=== PATIENT | female | born 1960 | race African-American/Black ===

== ENCOUNTER 2019-10-26 10:23 | Outpatient (CLI) | payer OTHER, SELFPAY ==
--- NOTE | 2019-10-26 10:25 | ECG_ITS ---
Measurements Intervals [place] Rate: 73 P: 39 CA: 160 QRS: -9 QRSD: 104 T: 32 QT: 366 QTc: 404 Interpretive Statements SINUS RHYTHM BORDERLINE R WAVE PROGRESSION, ANTERIOR LEADS BORDERLINE ECG Electronically Signed On 10-26-2019 12:37:36 CDT by Mehul Carver D.O.
[2019-10-26 11:46] LABS: Blood Urea Nitrogen 12 mg/dL (7-17); Calcium 10.6 mg/dL (8.4-10.2); Carbon Dioxide 28 mmol/L (22-30); Chloride 103 mmol/L (98-107); Estimated Glomerular Filt Rate > 60; Glucose 107 mg/dL (65-105); Potassium 4.3 mmol/L (3.4-5.0); Sodium 138 mmol/L (137-145)
== END 2019-10-26 10:24 | disposition home or self-care (01) ==
LOC: ANHSURGERY 10:25
PROVIDERS: Anesthesiology; PCP Nurse Practitioner Family; Visit Provider Surgery Plastic and Reconstructive Surgery
DX: Z01.818 Encounter for other preprocedural examination (principal); E11.9 Type 2 diabetes mellitus without complications
CPT/HCPCS: 36415; 80048; 93005

== ENCOUNTER 2019-10-29 00:50 | Outpatient (CLI) | payer OTHER, SELFPAY ==
[2019-10-29 16:39] LABS: SARS-CoV-2 RNA PCR Negative
== END 2019-10-29 00:51 | disposition home or self-care (01) ==
LOC: ANHCOVIDDT 00:50
PROVIDERS: PCP Nurse Practitioner Family; Visit Provider Surgery Plastic and Reconstructive Surgery
DX: Z01.812 Encounter for preprocedural laboratory examination (principal); Z20.828 Contact with and (suspected) exposure to other viral communicable diseases
CPT/HCPCS: 87635; C9803; U0003

== ENCOUNTER 2019-10-31 08:22 | Outpatient (CLI) | payer OTHER, SELFPAY ==
[2019-10-31 08:43] LABS: Hematocrit 41.2 % (37.0-47.0); Hemoglobin 13.4 g/dL (12.0-15.0); Mean Corpuscular HGB Conc 32.5 g/dl (32-36); Mean Corpuscular Hemoglobin 29.8 pg (26-34); Mean Corpuscular Volume 91.8 fl (80-100); Mean Platelet Volume 12.2 fl (7.4-10.4); Platelet Count Result 186 k/mm3 (150-375); Red Blood Count 4.49 M/mm3 (4.2-5.4); Red Cell Distribution Width 13.3 % (11.5-14.5); White Blood Count 6.9 K/mm3 (4.5-10.0)
[2019-10-31 08:53] LABS: Hemoglobin A1C 5.6 % (<5.7)
== END 2019-10-31 08:23 | disposition home or self-care (01) ==
PROVIDERS: PCP Nurse Practitioner Family; Visit Provider Surgery Plastic and Reconstructive Surgery
DX: E11.9 Type 2 diabetes mellitus without complications (principal)
CPT/HCPCS: 36415; 83036; 85027

== ENCOUNTER 2019-11-01 00:39 | Day surgery (SDC) | payer OTHER, SELFPAY ==
[2019-10-24 14:31] VITALS: BMI 40.7
--- NOTE | 2019-10-31 13:17 | WPDANESEPPF ---
Anes - Initial Pre Proc Eval Procedure: Operation Date: 11/01/19 12:30 Proposed Procedures p Bilateral Extended Brachioplasty - David Funez MD Date/Time: 10/31/19 13:17 Surgeon: David Funez MD Pre Op Diagnosis: Skin Laxity Patient Data Age: 59 Gender: F Height: 5 ft 7 in Weight: 117.93 kg Allergies Allergy/AdvReac Type Severity Reaction Status Date / Time amoxicillin [From Augmentin] AdvReac Vomiting Verified 10/24/19 14:31 clavulanic acid AdvReac Vomiting Verified 10/24/19 14:31 [From Augmentin] Home Medications Medication Instructions Recorded Confirmed Type amlodipine 10 mg tablet 5 mg PO DAILY 09/13/19 10/24/19 History metformin 850 mg tablet 850 mg PO DAILY 09/13/19 10/24/19 History albuterol sulfate 2 puff INHALATION Q4H PRN 10/24/19 10/24/19 History cholecalciferol (vitamin D3) 50 mcg PO DAILY 10/24/19 10/24/19 History [Vitamin D3] xhblecrb-eadaq-mftxa-CF borate 1 tablet PO DAILY 10/24/19 10/24/19 History [[facility]] levothyroxine 100 mcg PO DAILY 10/24/19 10/24/19 History pravastatin 10 mg PO QPM 10/24/19 10/24/19 History docusate sodium 100 mg capsule 100 mg PO DAILY #14 cap 10/27/19 Rx ondansetron HCl 4 mg tablet 4 mg PO Q8H #28 tablet 10/27/19 Rx oxycodone-acetaminophen 5 mg-325 1 tablet PO Q6H PRN #15 tablet 10/27/19 10/27/19 Rx mg tablet Patient hx anesthesia problems: post op nausea/vomiting Family hx anesthesia problems: none PMFSH Social History Social History (Updated 09/13/19 @ 08:12 by Malia Alvarez CMA) Smoking status: Never smoker Alcohol intake: never Substance use: never Anes - Eval Final PreProcedure Day of Procedure 10/31/19 13:17 Patient weight: morbidly obese Heart: regular rate and rhythm Lungs: clear to auscultation Airway: Mallampati scale class II Neurological: alert and oriented Last oral intake: >/= 8 hours ASA classification: III Emergent: no Anesthetic plan: proceed Anesthesia type and monitoring: general LMA and standard monitoring Informed Consent: The patient's anesthetic plan and its attendant risks and benefits were discussed with the patient/family/POA. Questions were solicited and answers provided to the satisfaction of the patient/family/POA.
[2019-11-01] VITALS (20 sets, daily range): BP systolic 142–191; BP diastolic 58–82; PULSE 77–118; RESP 17–25; TEMP 36.1–36.7; O2SAT 92–100; BMI 42.5
[2019-11-01 11:20] LABS: Urine Cotinine NEGATIVE
--- NOTE | 2019-11-01 11:48 | WPDHPUPDATE1 ---
History and Physical Update Update Date/Time: 11/01/19 11:48 History and Physical has been reviewed, including an updated exam of the patient. There are NO changes in the patient's condition. Risks, benefits, and alternatives have been discussed and questions answered. Patient agrees to proceed with procedure.
[2019-11-01 12:03] LABS: Glucose Point of Care 92 (65-105)
[2019-11-01] MEDS: SCOPOLAMINE 1.5 MG PATCH TRANSDERM (12:15)
[2019-11-01] MEDS: ONDANSETRON INJ 4 MG/2 ML VIAL IV PUSH ×3 (12:15→17:10)
[2019-11-01] MEDS: LACTATED RINGERS 1,000 ML 30 ML IV CONT ×3 (12:28→18:01)
[2019-11-01] MEDS: CLINDAMYCIN 900 MG/NS 50 ML 900 MG/50 ML PIGGYBACK 50 MG IVPB (12:28)
--- NOTE | 2019-11-01 15:48 | SUR.OPER ---
1546 poc blood sugar 102
[2019-11-01 15:54] LABS: Glucose Point of Care 53 (65-105)
[2019-11-01 15:54] LABS: Glucose Point of Care 102 (65-105)
--- NOTE | 2019-11-01 16:37 | PM.PROC ---
Procedure Note - Detailed Date of procedure: 11/01/19 Pre-op diagnosis: Skin Laxity Post-op diagnosis: same Procedure performed: Extended brachioplasty Description of procedure: Patient was marked in the preoperative holding area with her verification. I did verify the locations of the scars that extended on the arm as well as the lateral chest wall. I want her to be an active participant aware of where the scar locations would be. Made sure answered all of her questions to her satisfaction today and consent was obtained. She was taken to the operating room placed supine on the operating room table. Anesthesia was provided by anesthesiology and prepped and draped in a standard sterile fashion. Surgical time-out was taken. Stab incisions were made along the planned upper incision line of the arms. I then used a tumescent solution 1 L per arm/lateral chest wall. Both arms proceed in the same manner. A 4 mm basket cannula is used to complete S.A.F.E. liposuction of bilateral upper arms as well as lateral chest [place]. In the area of planned resection I completely deep fat of this with the liposuction cannula. Starting from the axilla moving distally I did a strip avulsion technique. This was a cut as you go stapling as you go technique. Also on the chest wall did very similar stapling as we went to make sure good contour. I closed using 2-0 Vicryl followed by 3-0 strata fix and 3-0 chromic. Suture was used to completely obliterate all space. Xeroform fluffs and a lightly applied Siva wrap were used for dressing. She had good color and capillary refill of her fingers at the end of the case. She was woken taken the PACU without difficulty. All instrument sponge counts were correct at the end of the case. Anesthesia: GLMA Surgeon: David Funez MD Estimated blood loss (mL): 30 Drains: No Packing: No Pathology: none sent Complications: No immediate complications Condition: stable Disposition: PACU Findings: Tissue weight: Right - 710 grams Left - 686 grams
[2019-11-01 16:55] LABS: Glucose Point of Care 84 (65-105)
[2019-11-01] MEDS: HALOPERIDOL LACTATE 5 MG/ML VIAL 1 MG IV PUSH (17:39)
[2019-11-01] MEDS: DEXAMETHASONE SOD PHOS INJ 4 MG/ML VIAL IV PUSH (18:04)
--- NOTE | 2019-11-01 18:31 | SUR.PHASEI ---
RN has contacted Dr. Barker multiple times related to nausea and vomiting. Patient keeps actively vomiting up stomach bile. Patient has gotten sick a total of 5 times now in recovery.
[2019-11-01 18:39] LABS: Glucose Point of Care 137 (65-105)
[2019-11-01] MEDS: METOCLOPRAMIDE HCL INJ 10 MG/2 ML VIAL IV PUSH (18:46)
--- NOTE | 2019-11-01 19:00 | SUR.PHASEI ---
RN notified Dr. Funez of patient's uncontrolled nausea and vomiting.
--- NOTE | 2019-11-01 19:41 | WPDPN ---
Progress Note: A&P Assessment and Plan (1) Skin laxity: Code(s): L57.4 - Cutis laxa senilis Status: Acute Assessment and Plan: Due to persistent nausea will keep overnight. She has had this with anesthesia before. She is improving some however may be difficult for the family to keep at home. Discussed this with her and her and they agree. We will monitor overnight. (2) Diabetes: Code(s): E11.9 - Type 2 diabetes mellitus without complications Status: Acute (3) Hypertension: Code(s): I10 - Essential (primary) hypertension Status: Acute (4) Thyroid disease: Code(s): E07.9 - Disorder of thyroid, unspecified Status: Acute Exam Narrative: Exam Narrative: No signs of hematoma. Dressings are clean. Intermittent nausea and nonproductive vomiting now. Const: General: no acute distress Resp: Effort & Inspection: normal respiratory effort Auscultation: no wheezes Cardio: Rate: regular rate GI: GI Palp: Yes Soft to palpation Skin: General skin exam: normal color Psych: Mental Status: mental status grossly normal Objective Data Vital Signs Vital Signs: Vital Signs - 24 hr 11/01/19 10:50 11/01/19 16:42 11/01/19 16:55 Temperature 36.6 C 36.1 C L Pulse Rate 79 78 77 Respiratory Rate 20 18 17 Blood Pressure 156/58 H 154/73 H 156/74 H Pulse Oximetry 100 100 100 11/01/19 17:10 11/01/19 17:25 11/01/19 17:40 Temperature Pulse Rate 89 92 96 Respiratory Rate 23 H 22 H 25 H Blood Pressure 191/73 H 188/77 H 177/72 H Pulse Oximetry 95 92 93 11/01/19 17:55 11/01/19 18:10 11/01/19 18:20 Temperature Pulse Rate 93 95 118 H Respiratory Rate 20 21 H 20 Blood Pressure 170/66 H 168/70 H 164/69 H Pulse Oximetry 92 94 11/01/19 18:35 11/01/19 18:50 11/01/19 19:05 Temperature Pulse Rate 94 99 97 Respiratory Rate 20 22 H 24 H Blood Pressure 169/65 H 161/62 H 142/62 H Pulse Oximetry 92 95 95 11/01/19 19:20 Temperature Pulse Rate 99 Respiratory Rate 23 H Blood Pressure 173/70 H Pulse Oximetry 94 Intake/Output Intake/Output: Intake & Output 10/29/19 10/30/19 10/31/19 11/01/19 23:59 23:59 23:59 23:59 Intake Total 750 Balance 750 Meds/Results Medications: Active Medications Generic Name Dose Route Start Last Admin Trade Name Freq PRN Reason Stop Dose Admin Docusate Sodium 100 mg 11/01/19 21:00 Colace Capsule PO Q12HR SUSY Enoxaparin Sodium 40 mg 11/02/19 09:00 Lovenox SUB-Q DAILY SUSY Fentanyl Citrate 25 mcg 11/01/19 12:00 Sublimaze IV PUSH Q2M PRN Pain Lactated Ringer's 1,000 mls @ 30 mls/hr 11/01/19 12:00 11/01/19 16:42 Lr - Lactated Ringers Iv IV CONT Infused .Q24H SUSY Infusion Lactated Ringer's 1,000 mls @ 30 mls/hr 11/01/19 12:00 11/01/19 18:01 Lr - Lactated Ringers Iv IV CONT 30 mls/hr .Q24H SUSY Administration Lactated Ringer's 1,000 mls @ 125 mls/hr 11/01/19 19:35 Lr - Lactated Ringers Iv IV CONT .Q8H SUSY Morphine Sulfate 2 mg 11/01/19 19:35 Morphine Sulfate Inj IV PUSH Q2H PRN Pain Ondansetron HCl 4 mg 11/01/19 12:00 11/01/19 17:10 Zofran Inj IV PUSH 4 mg ONCE PRN Administration Nausea Ondansetron HCl 4 mg 11/01/19 19:35 Zofran Inj IV PUSH Q6H PRN Nausea Oxycodone HCl 5 mg 11/01/19 12:00 Roxicodone Ir Tablet PO ONCE PRN Pain Oxycodone/Acetaminophen 1 - 2 tablet 11/01/19 19:35 Percocet 5-325 Mg PO Q6H PRN Pain Labs Labs: Laboratory Results - last 24 hr 11/01/19 11/01/19 11/01/19 10:50 12:02 15:42 POC Capillary Glucose 92 53 L* Cotinine Negative 11/01/19 11/01/19 11/01/19 15:45 16:51 18:37 POC Capillary Glucose 102 84 137 H Cotinine
--- NOTE | 2019-11-01 20:45 | ADMGEN ---
This patient, Liane Fletcher, was admitted to 3 [facility] Surg Room 319-01. Patient/family oriented to hospital policies and general routines including ID bracelet, bed and alarms, visiting hours, pain management, procedures, bathroom and other care routines, personal items, smoking policy, room service/diet, and visiting hours. Valuables list has been completed. Information on how to activate the Rapid Response Team has been discussed. Patient/Family are encouraged to report perceived risks to care and to ask questions if they do not understand what they are told or what they should do.
[2019-11-01] MEDS: LACTATED RINGERS 1,000 ML 125 ML IV CONT (21:02)
[2019-11-01] MEDS: MORPHINE SULFATE 2 MG/ML INJ IV PUSH (22:23)
[2019-11-02 00:06] LABS: Glucose Point of Care 162 (65-105)
[2019-11-02] MEDS: ONDANSETRON INJ 4 MG/2 ML VIAL IV PUSH ×3 (01:57→15:32)
[2019-11-02 02:00] VITALS: BP 152/73; PULSE 92; RESP 18; TEMP 36.4; O2SAT 99
[2019-11-02] MEDS: MORPHINE SULFATE 2 MG/ML INJ IV PUSH (02:30)
[2019-11-02] MEDS: LACTATED RINGERS 1,000 ML 125 ML IV CONT (05:24)
[2019-11-02 05:26] LABS: Glucose Point of Care 126 (65-105)
[2019-11-02] MEDS: LEVOTHYROXINE SODIUM 100 MCG TABLET PO (05:39)
[2019-11-02 06:00] VITALS: BP 154/81; PULSE 88; RESP 18; TEMP 37.3; O2SAT 100
--- NOTE | 2019-11-02 06:47 | WPDPN ---
Progress Note: A&P Assessment and Plan (1) Skin laxity: Code(s): L57.4 - Cutis laxa senilis Status: Acute Assessment and Plan: Much improved. We will plan to discharge home today: When tolerating p.o. Ambulating Pain control Today we had a lengthy discussion about the care. What monitor for. Made sure answered all of her questions to her satisfaction. She understands were always available questions after discharge. I will see her back in a week. (2) Diabetes: Code(s): E11.9 - Type 2 diabetes mellitus without complications Status: Acute (3) Hypertension: Code(s): I10 - Essential (primary) hypertension Status: Acute (4) Thyroid disease: Code(s): E07.9 - Disorder of thyroid, unspecified Status: Acute Review of Systems Review of Systems: All systems reviewed & are unremarkable except as noted in HPI and below Exam Narrative: Exam Narrative: Arms are healing well. There is no signs of infection. No hematoma. No seroma. She has normal sensation in the hand, full range of motion, good color and capillary refill. Const: General: no acute distress Resp: Effort & Inspection: normal respiratory effort Auscultation: no wheezes Cardio: Rate: regular rate GI: GI Palp: Yes Soft to palpation Skin: General skin exam: normal color Extrem: Other: No calf tenderness. Negative Homans. Psych: Mental Status: mental status grossly normal Objective Data Vital Signs Vital Signs: Vital Signs - 24 hr 11/01/19 10:50 11/01/19 16:42 11/01/19 16:55 Temperature 36.6 C 36.1 C L Pulse Rate 79 78 77 Respiratory Rate 20 18 17 Blood Pressure 156/58 H 154/73 H 156/74 H Pulse Oximetry 100 100 100 11/01/19 17:10 11/01/19 17:25 11/01/19 17:40 Temperature Pulse Rate 89 92 96 Respiratory Rate 23 H 22 H 25 H Blood Pressure 191/73 H 188/77 H 177/72 H Pulse Oximetry 95 92 93 11/01/19 17:55 11/01/19 18:10 11/01/19 18:20 Temperature Pulse Rate 93 95 118 H Respiratory Rate 20 21 H 20 Blood Pressure 170/66 H 168/70 H 164/69 H Pulse Oximetry 92 94 11/01/19 18:35 11/01/19 18:50 11/01/19 19:05 Temperature Pulse Rate 94 99 97 Respiratory Rate 20 22 H 24 H Blood Pressure 169/65 H 161/62 H 142/62 H Pulse Oximetry 92 95 95 11/01/19 19:20 11/01/19 19:35 11/01/19 19:50 Temperature Pulse Rate 99 98 97 Respiratory Rate 23 H 24 H 17 Blood Pressure 173/70 H 172/71 H 172/66 H Pulse Oximetry 94 94 96 11/01/19 20:00 11/01/19 20:05 11/01/19 20:20 Temperature 36.2 C L Pulse Rate 92 98 96 Respiratory Rate 20 19 20 Blood Pressure 147/66 H 170/82 H Pulse Oximetry 96 96 95 11/01/19 20:45 11/01/19 22:00 11/02/19 02:00 Temperature 36.7 C 36.2 C L 36.4 C Pulse Rate 97 92 92 Respiratory Rate 20 20 18 Blood Pressure 152/62 H 147/66 H 152/73 H Pulse Oximetry 100 96 99 Intake/Output Intake/Output: Intake & Output 10/30/19 10/31/19 11/01/19 11/02/19 23:59 23:59 23:59 23:59 Intake Total 1750 1000 Output Total 300 300 Balance 1450 700 Meds/Results Medications: Active Medications Generic Name Dose Route Start Last Admin Trade Name Freq PRN Reason Stop Dose Admin Albuterol 2 puff 11/01/19 20:22 Proventil Hfa INHALATION Q4H PRN Shortness Of Breath Amlodipine Besylate 5 mg 11/02/19 09:00 Norvasc PO DAILY SUSY Docusate Sodium 100 mg 11/01/19 21:00 11/01/19 22:24 Colace Capsule PO Not Given Q12HR SUSY Enoxaparin Sodium 40 mg 11/02/19 09:00 Lovenox SUB-Q DAILY SUSY Lactated Ringer's 1,000 mls @ 125 mls/hr 11/01/19 19:35 11/02/19 05:24 Lr - Lactated Ringers Iv IV CONT 125 mls/hr .Q8H SUSY Administration Levothyroxine Sodium 100 mcg 11/02/19 06:30 11/02/19 05:39 Synthroid PO 100 mcg DAILY@0630 SUSY Administration Metformin HCl 850 mg 11/02/19 08:00 Glucophage PO DAILY@0800 SUSY Morphine Sulfate 2 mg 11/01/19 19:35 11/02/19 02:30 Morphine
--- NOTE | 2019-11-02 06:52 | PM.DS ---
DS: Admitting Diagnosis Admitting Diagnosis Admitting Diagnosis: Postoperative nausea and vomiting. Type 2 diabetes. DS: Discharge Diagnosis Discharge Diagnosis (1) Skin laxity: Code(s): L57.4 - Cutis laxa senilis Status: Acute Assessment and Plan: Will discharge home. Follow up in 1 week. She has a full list of instructions and will call with any questions or concerns. (2) Diabetes: Code(s): E11.9 - Type 2 diabetes mellitus without complications Status: Acute (3) Hypertension: Code(s): I10 - Essential (primary) hypertension Status: Acute (4) Thyroid disease: Code(s): E07.9 - Disorder of thyroid, unspecified Status: Acute (5) PONV (postoperative nausea and vomiting): Code(s): R11.2 - Nausea with vomiting, unspecified; Z98.890 - Other specified postprocedural states Status: Acute Assessment and Plan: Much improved at the time of discharge. DS: Summary Time Spent with Patient Time attestation: Total time spent providing and/or coordinating discharge services: Exam Narrative: Exam Narrative: Arms are healing well. There is no signs of infection. No hematoma. No seroma. She has normal sensation in the hand, full range of motion, good color and capillary refill. Const: General: no acute distress Resp: Effort & Inspection: normal respiratory effort Auscultation: no wheezes Cardio: Rate: regular rate GI: GI Palp: Yes Soft to palpation Skin: General skin exam: normal color Extrem: Other: No calf tenderness. Negative Homans. Psych: Mental Status: mental status grossly normal DS: Data Data Completed and Pending Labs on day of discharge: Labs from last 24 hours 11/02/19 11/02/19 11/01/19 05:23 00:03 18:37 POC Capillary Glucose 126 H 162 H 137 H Cotinine 11/01/19 11/01/19 11/01/19 16:51 15:45 15:42 POC Capillary Glucose 84 102 53 L* Cotinine 11/01/19 11/01/19 12:02 10:50 POC Capillary Glucose 92 Cotinine Negative Discharge Plan Discharge Patient Disposition: Home, Self-Care Discharge Instructions: POST OPERATIVE DISCHARGE INSTRUCTIONS FOR Brachioplasty DAVID FUNEZ [facility] [address] [place] [address] [address] for 24 hours after anesthesia and while you are taking pain medication. Take all prescribed medication as directed Diet as tolerated. No lifting or activity that raises blood pressure for 48 hours. Regular walking / ambulation. No showering until directed to. Once you shower do not take pain medication before showering as the combination of medication and heat may cause you to feel dizzy or pass out. No pools or tubs for 2 weeks. Call with any questions or concerns. Remove the Scopolamine patch that was placed behind your ear in 72 hours or less. Wash your hands after touching. Dressing Care: Gently applied Siva wraps 23 hours per day. Loosen the wraps with any numbness of hand, swelling, or other concerns. May shower. If you have any questions or concerns, please call the office . If it is after hours you will be directed to the forest fire prevention manager exchange. Shortness of breath, chest pain, or other medical emergency dial 911 / proceed to the Emergency Room. Patient Instructions: Pain Management (DC) Stand Alone Forms: General Discharge Instructions Follow-up/Referrals: David Funez MD [Physician] - 1 Week Discharge Medications: Continued metformin 850 mg tablet 850 mg PO DAILY RF: 0 amlodipine 10 mg tablet 5 mg PO DAILY RF: 0 ondansetron HCl [Zofran] 4 mg tablet 4 mg PO Q8H Qty: 28 RF: 0 docusate sodium [Colace] 100 mg capsule 100 mg PO DAILY Qty: 14 RF: 0 oxycodone-acetaminophen [Percocet] 5-325 mg tablet 1 tablet PO Q6H PRN (Reason: pain) Qty: 15 RF: 0 levothyroxine 100 mcg Tablet 100 mcg PO DAILY RF: 0 pravastatin
[2019-11-02] MEDS: AMLODIPINE BESYLATE 5 MG TABLET PO (08:01)
[2019-11-02] MEDS: ENOXAPARIN 40 MG/0.4 ML SYRINGE SUB-Q (08:01)
[2019-11-02] MEDS: DOCUSATE SODIUM 100 MG CAPSULE PO (08:01)
--- NOTE | 2019-11-02 09:21 | WPDANESPN ---
Anes - Prog Note Post-Op Date/Time: 11/02/19 09:21 Cardiovascular status: normal Respiratory status: normal Airway patency: baseline Mental status: baseline Post-Op hydration status: normal Vital Signs: Last Vital Signs Temp 37.3 C 11/02/19 06:00 Pulse 88 11/02/19 06:00 Resp 18 11/02/19 06:00 BP 154/81 H 11/02/19 06:00 Pulse Ox 100 11/02/19 06:00 I/O: Intake & Output 11/01/19 11/02/19 11/02/19 23:59 07:59 15:59 Intake Total 1700 1000 Output Total 300 300 Balance 1400 700 11/01/19 11/01/19 11/01/19 10:50 12:02 15:42 POC Capillary Glucose 92 53 L* Cotinine Negative 11/01/19 11/01/19 11/01/19 15:45 16:51 18:37 POC Capillary Glucose 102 84 137 H Cotinine 11/02/19 11/02/19 00:03 05:23 POC Capillary Glucose 162 H 126 H Cotinine Post-procedural complaints: nausea and vomiting Patient Feedback: Patient satisfied with anesthetic care.
[2019-11-02 13:16] LABS: Glucose Point of Care 134 (65-105)
[2019-11-02 14:00] VITALS: BP 151/73; PULSE 90; RESP 16; TEMP 36.9; O2SAT 100
== END 2019-11-02 18:00 | disposition home or self-care (01) ==
LOC: ANHSURGERY 17:03 → ANH3MEDSUR 20:27
PROVIDERS: PCP Nurse Practitioner Family; Visit Provider Surgery Plastic and Reconstructive Surgery
PROC: (CPT 15836; principal; 2019-11-01 12:30)
DX: L57.4 Cutis laxa senilis (principal); E65 Localized adiposity; Z98.890 Other specified postprocedural states; R11.2 Nausea with vomiting, unspecified; I10 Essential (primary) hypertension; E11.9 Type 2 diabetes mellitus without complications; Z79.84 Long term (current) use of oral hypoglycemic drugs; E07.9 Disorder of thyroid, unspecified; J45.909 Unspecified asthma, uncomplicated; E66.01 Morbid (severe) obesity due to excess calories; Z68.41 Body mass index [BMI] 40.0-44.9, adult; Z79.899 Other long term (current) drug therapy
CPT/HCPCS: 15878; 15877; 15836; 36415; 80307; A9270; J0171; J1100; J1170; J1200; J1630; J1650; J2250; J2270; J2405; J2704; J2765; J3010; J7120

== ENCOUNTER → 2023-02-07 10:09 | Outpatient (CLI) | payer OTHER, SELFPAY ==
--- NOTE | ~2023-02-07 | MM_ITS ---
EXAMINATION: MM screening brian BI w [facility]orro HISTORY: Screening mammogram TECHNIQUE: Craniocaudal and mediolateral oblique 3-D tomosynthesis images were obtained and synthetic 2-D images were generated. CAD analysis was submitted and interpreted. COMPARISON: 11/30/2018 bilateral screening mammogram BREAST PARENCHYMAL COMPOSITION: The breasts are almost entirely fatty. FINDINGS: There is no evidence of suspicious mass, calcification, or architectural distortion to sugg est malignancy in either breast. There has been no suspicious interval change. IMPRESSION: 1. No mammographic evidence of malignancy. 2. Recommend routine screening mammography in one year. BI-RADS Category 1: Negative Reviewed, dictated and finalized at location A.
== END ==
PROVIDERS: PCP Nurse Practitioner Family; Visit Provider Nurse Practitioner Family
DX: Z12.31 Encounter for screening mammogram for malignant neoplasm of breast (principal)
CPT/HCPCS: 77063; 77067